=== PATIENT | female | born 1995 | race Caucasian/White ===

== ENCOUNTER 2017-06-01 09:10 | Emergency (ER) | payer OTHER ==
[~2017-06-01] VITALS: Ht 157.5 cm; Wt 63.6 kg
[2017-06-01 10:30] LABS: BASOPHIL % 0.5 % (0-2); PLATELET COUNT 231 x10^3mcL (130-400); RED CELL DISTRIBUTION WIDTH 14.2 % (11.5-14.5)
[2017-06-01 10:40] LABS: CALCIUM 8.9 mg/dL (8.5-10.1); CARBON DIOXIDE 26.4 mmol/L (21-32); CHLORIDE SERUM 104 mmol/L (98-107); CREATININE SERUM 0.5 mg/dL (0.6-1.0); GFR1 > 60 mL/min; GLUCOSE SERUM 85 mg/dL (74-106); POTASSIUM SERUM 3.9 mmol/L (3.5-5.1); SODIUM SERUM 141 mmol/L (136-145)
[2017-06-01 10:45] LABS: ALBUMIN 3.7 g/dL (3.4-5.0); ALKALINE PHOSPHATASE 84 U/L (46-116); ALT/SGPT 17 U/L (14-59); AST/SGOT 11 U/L (15-37); BILIRUBIN TOTAL 0.4 mg/dL (0.20-1.00); LIPASE 79 IU/L (73-393); TOTAL PROTEIN, SERUM 7.5 g/dL (6.4-8.2)
[2017-06-01 13:00] VITALS: BP 104/62
== END 2017-06-01 13:00 | disposition home or self-care (01) ==
LOC: ED 09:10
PROVIDERS: Emergency Medicine
DX: R19.7 Diarrhea, unspecified (principal); R10.11 Right upper quadrant pain
CPT/HCPCS: J2405; J3010; J7030; Q0092

== ENCOUNTER 2017-08-10 23:23 | Emergency (ER) | payer OTHER ==
[~2017-08-10] VITALS: Ht 157.5 cm; Wt 65.8 kg
[2017-08-10 23:31] VITALS: Ht 157.5 cm; Wt 65.8 kg
[2017-08-11 01:04] LABS: BASOPHIL % 0.3 % (0-2); PLATELET COUNT 258 x10^3mcL (130-400)
[2017-08-11 01:06] LABS: UA SPECIFIC GRAVITY 1.025 (1.005-1.035); microscopic required? YES; urine erythrocyte NEGATIVE (NEGATIVE)
[2017-08-11 01:11] LABS: RED CELL DISTRIBUTION WIDTH 14.7 % (11.5-14.5)
[2017-08-11 02:43] VITALS: BP 122/70
== END 2017-08-11 02:43 | disposition home or self-care (01) ==
LOC: ED 23:23
PROVIDERS: Emergency Medicine
DX: O23.41 Unspecified infection of urinary tract in pregnancy, first trimester (principal); N83.209 Unspecified ovarian cyst, unspecified side; Z3A.00 Weeks of gestation of pregnancy not specified
CPT/HCPCS: 36415

== ENCOUNTER 2017-08-12 23:24 | Emergency (ER) | payer OTHER ==
[~2017-08-12] VITALS: Ht 157.5 cm; Wt 65.9 kg
[2017-08-13 00:03] VITALS: Ht 157.5 cm; Wt 65.9 kg
[2017-08-13 03:54] VITALS: BP 110/70
== END 2017-08-13 03:54 | disposition home or self-care (01) ==
LOC: ED 23:24
DX: O26.891 Other specified pregnancy related conditions, first trimester (principal); R10.9 Unspecified abdominal pain; Z3A.01 Less than 8 weeks gestation of pregnancy

== ENCOUNTER 2017-08-20 23:19 | Emergency (ER) | payer OTHER ==
[~2017-08-20] VITALS: Ht 157.5 cm; Wt 66.2 kg
[2017-08-20 23:37] VITALS: Ht 157.5 cm; Wt 66.2 kg
[2017-08-21 00:59] VITALS: BP 129/70
== END 2017-08-21 00:59 | disposition home or self-care (01) ==
LOC: ED 23:19
DX: O98.311 Other infections with a predominantly sexual mode of transmission complicating pregnancy, first trimester (principal); A56.02 Chlamydial vulvovaginitis; Z3A.01 Less than 8 weeks gestation of pregnancy

== ENCOUNTER 2017-09-20 22:51 | Emergency (ER) | payer OTHER ==
[~2017-09-20] VITALS: Ht 157.5 cm; Wt 65.8 kg
[2017-09-20 23:08] VITALS: Ht 157.5 cm; Wt 65.8 kg
[2017-09-21 01:45] LABS: CALCIUM 8.2 mg/dL (8.5-10.1); CARBON DIOXIDE 23.1 mmol/L (21-32); CHLORIDE SERUM 102 mmol/L (98-107); CREATININE SERUM 0.5 mg/dL (0.6-1.0); GFR1 > 60 mL/min; GLUCOSE SERUM 83 mg/dL (74-106); POTASSIUM SERUM 3.4 mmol/L (3.5-5.1); SODIUM SERUM 137 mmol/L (136-145)
[2017-09-21 01:50] LABS: ALKALINE PHOSPHATASE 75 U/L (46-116); ALT/SGPT 12 U/L (14-59); AST/SGOT 14 U/L (15-37); TOTAL PROTEIN, SERUM 6.6 g/dL (6.4-8.2)
[2017-09-21 01:53] LABS: BASOPHIL % 0.2 % (0-2); PLATELET COUNT 168 x10^3mcL (130-400); RED CELL DISTRIBUTION WIDTH 14.3 % (11.5-14.5)
[2017-09-21 02:00] VITALS: BP 107/78
== END 2017-09-21 02:17 | disposition home or self-care (01) ==
LOC: ED 22:51
PROVIDERS: Emergency Medicine
DX: O26.891 Other specified pregnancy related conditions, first trimester (principal); G43.909 Migraine, unspecified, not intractable, without status migrainosus; R50.9 Fever, unspecified; R11.10 Vomiting, unspecified; Z3A.00 Weeks of gestation of pregnancy not specified
CPT/HCPCS: J1200; J2765; J7030

== ENCOUNTER 2017-09-21 19:55 | Emergency (ER) | payer OTHER ==
[~2017-09-21] VITALS: Ht 157.5 cm; Wt 65.3 kg
[2017-09-21 20:04] VITALS: Ht 157.5 cm; Wt 65.3 kg
[2017-09-21 21:17] VITALS: BP 124/79
== END 2017-09-21 21:17 | disposition home or self-care (01) ==
LOC: ED 19:55
DX: Z09 Encounter for follow-up examination after completed treatment for conditions other than malignant neoplasm (principal); Z34.01 Encounter for supervision of normal first pregnancy, first trimester

== ENCOUNTER 2017-09-22 19:40 | Emergency (ER) | payer MEDICAID ==
[~2017-09-22] VITALS: Ht 162.6 cm; Wt 64.4 kg
[2017-09-22 19:54] VITALS: Ht 162.6 cm; Wt 64.4 kg
[2017-09-22 23:34] VITALS: BP 102/69
== END 2017-09-22 23:35 | disposition home or self-care (01) ==
LOC: ED 19:40
DX: B34.9 Viral infection, unspecified (principal)

== ENCOUNTER 2017-10-01 23:46 | Emergency (ER) | payer MEDICAID ==
[~2017-10-01] VITALS: Ht 157.5 cm; Wt 65.5 kg
[2017-10-02 00:05] VITALS: Ht 157.5 cm; Wt 65.5 kg
[2017-10-02 01:10] LABS: BASOPHIL % 0.4 % (0-2); PLATELET COUNT 185 x10^3mcL (130-400); RED CELL DISTRIBUTION WIDTH 13.8 % (11.5-14.5)
[2017-10-02 01:14] LABS: UA SPECIFIC GRAVITY >=1.030 (1.005-1.035); microscopic required? YES; urine erythrocyte 3+ (NEGATIVE)
[2017-10-02 01:26] LABS: CALCIUM 8.7 mg/dL (8.5-10.1); CHLORIDE SERUM 111 mmol/L (98-107); CREATININE SERUM 0.5 mg/dL (0.6-1.0); GFR1 > 60 mL/min; GLUCOSE SERUM 89 mg/dL (74-106); SODIUM SERUM 141 mmol/L (136-145)
[2017-10-02 01:36] LABS: ALBUMIN 2.9 g/dL (3.4-5.0); ALKALINE PHOSPHATASE 69 U/L (46-116); ALT/SGPT 22 U/L (14-59); AST/SGOT 14 U/L (15-37); BILIRUBIN TOTAL 0.19 mg/dL (0.20-1.00); LIPASE 204 IU/L (73-393); TOTAL PROTEIN, SERUM 6.4 g/dL (6.4-8.2)
[2017-10-02 04:28] VITALS: BP 104/59
== END 2017-10-02 04:28 | disposition home or self-care (01) ==
LOC: ED 23:46
PROVIDERS: Emergency Medicine
DX: O03.89 Complete or unspecified spontaneous abortion with other complications (principal); R10.9 Unspecified abdominal pain; G43.909 Migraine, unspecified, not intractable, without status migrainosus
CPT/HCPCS: 36415; J1885; J2270; Q0162

== ENCOUNTER 2017-11-02 11:29 | Emergency (ER) | payer MEDICAID ==
[~2017-11-02] VITALS: Ht 157.5 cm; Wt 63.5 kg
[2017-11-02 12:09] LABS: microscopic required? YES; urine erythrocyte NEGATIVE (NEGATIVE)
[2017-11-02 12:15] VITALS: BP 110/62
== END 2017-11-02 12:15 | disposition home or self-care (01) ==
LOC: ED 11:29
PROVIDERS: Emergency Medicine
DX: N76.0 Acute vaginitis (principal); G43.909 Migraine, unspecified, not intractable, without status migrainosus
CPT/HCPCS: 87491; 87591

== ENCOUNTER 2017-11-09 20:06 | Inpatient (IN) | payer MEDICAID ==
[~2017-11-09] VITALS: Ht 157.5 cm; Wt 65.9 kg
[2017-11-09 20:21] VITALS: Ht 157.5 cm; Wt 65.9 kg
[2017-11-09 21:27] LABS: BASOPHIL % 0.2 % (0-2); PLATELET COUNT 238 x10^3mcL (130-400); RED CELL DISTRIBUTION WIDTH 14.1 % (11.5-14.5)
[2017-11-09 21:31] LABS: CALCIUM 8.4 mg/dL (8.5-10.1); CARBON DIOXIDE 24.2 mmol/L (21-32); CHLORIDE SERUM 106 mmol/L (98-107); CREATININE SERUM 0.6 mg/dL (0.6-1.0); GFR1 > 60 mL/min; GLUCOSE SERUM 102 mg/dL (74-106); POTASSIUM SERUM 3.9 mmol/L (3.5-5.1); SODIUM SERUM 142 mmol/L (136-145)
[2017-11-09 21:35] LABS: ALBUMIN 3.6 g/dL (3.4-5.0); ALKALINE PHOSPHATASE 97 U/L (46-116); ALT/SGPT 18 U/L (14-59); AST/SGOT 11 U/L (15-37); LIPASE 109 IU/L (73-393); TOTAL PROTEIN, SERUM 7.6 g/dL (6.4-8.2)
[2017-11-10 01:47] LABS: MAGNESIUM 1.8 mg/dL (1.8-2.4); PHOSPHOROUS 3.6 mg/dL (2.5-4.9)
[2017-11-10 02:18] VITALS: BP 97/60
[2017-11-10 05:36] VITALS: BP 107/57
[2017-11-10 05:51] LABS: UA SPECIFIC GRAVITY <=1.005 (1.005-1.035); microscopic required? YES; urine erythrocyte 3+ (NEGATIVE)
[2017-11-10 06:53] LABS: BASOPHIL % 0 % (0-2); PLATELET COUNT 208 x10^3mcL (130-400); RED CELL DISTRIBUTION WIDTH 13.8 % (11.5-14.5)
[2017-11-10 07:01] LABS: CALCIUM 8.2 mg/dL (8.5-10.1); CARBON DIOXIDE 23.8 mmol/L (21-32); CHLORIDE SERUM 103 mmol/L (98-107); CREATININE SERUM 0.5 mg/dL (0.6-1.0); GFR1 > 60 mL/min; GLUCOSE SERUM 120 mg/dL (74-106); POTASSIUM SERUM 3.5 mmol/L (3.5-5.1); SODIUM SERUM 137 mmol/L (136-145)
[2017-11-10 07:04] LABS: AMPHETAMINE QUAL UR NONE DETECTED (See below)
[2017-11-10 09:34] VITALS: BP 91/54
[2017-11-10 16:34] VITALS: BP 101/53
[2017-11-10 18:56] LABS: UA SPECIFIC GRAVITY 1.015 (1.005-1.035); microscopic required? YES; urine erythrocyte 3+ (NEGATIVE)
[2017-11-10 20:10] VITALS: BP 99/62
[2017-11-11 05:30] VITALS: BP 104/53
[2017-11-11 06:12] LABS: CALCIUM 8.5 mg/dL (8.5-10.1); CARBON DIOXIDE 27.4 mmol/L (21-32); CHLORIDE SERUM 110 mmol/L (98-107); CREATININE SERUM 0.5 mg/dL (0.6-1.0); GFR1 > 60 mL/min; GLUCOSE SERUM 100 mg/dL (74-106); MAGNESIUM 1.9 mg/dL (1.8-2.4); PHOSPHOROUS 3.3 mg/dL (2.5-4.9); POTASSIUM SERUM 3.8 mmol/L (3.5-5.1); SODIUM SERUM 145 mmol/L (136-145)
[2017-11-11 06:19] LABS: BASOPHIL % 0.2 % (0-2); PLATELET COUNT 222 x10^3mcL (130-400); RED CELL DISTRIBUTION WIDTH 13.7 % (11.5-14.5)
[2017-11-11 09:14] VITALS: BP 107/53
[2017-11-11 12:53] VITALS: BP 107/53
[2017-11-11] MEDS ORDERED: CEPHALEXIN500 MG PO (14:04)
== END 2017-11-11 14:58 | disposition home or self-care (01) | DRG 234 ==
LOC: ED 20:06 → MU 11-10 00:44
PROVIDERS: Emergency Medicine; Internal Medicine; Surgery
PROC: 0DTJ4ZZ Resection of Appendix, Percutaneous Endoscopic Approach (ICD-10-PCS; principal; 2017-11-10 10:30)
DX: K35.80 Unspecified acute appendicitis (principal); N17.0 Acute kidney failure with tubular necrosis; J98.11 Atelectasis; Z68.25 Body mass index [BMI] 25.0-25.9, adult; R19.7 Diarrhea, unspecified; F14.10 Cocaine abuse, uncomplicated; F10.10 Alcohol abuse, uncomplicated
CPT/HCPCS: 83880; 94150; J0330; J0690; J0696; J1170; J1885; J1956; J2270; J2405; J2550; J2704; J2710; J3010; J3490; J7030; J7120; Q0092; Q9967

== ENCOUNTER 2017-11-13 16:17 | Emergency (ER) | payer MEDICAID ==
[~2017-11-13] VITALS: Ht 157.5 cm; Wt 63.5 kg
[~2017-11-13 16:17] MED LIST: CEPHALEXIN500 MG PO
[2017-11-13 16:23] VITALS: Ht 157.5 cm; Wt 63.5 kg
[2017-11-13 17:06] LABS: BASOPHIL % 0.6 % (0-2); PLATELET COUNT 260 x10^3mcL (130-400); RED CELL DISTRIBUTION WIDTH 13.8 % (11.5-14.5)
[2017-11-13 17:08] LABS: CALCIUM 8.8 mg/dL (8.5-10.1); CARBON DIOXIDE 26.7 mmol/L (21-32); CHLORIDE SERUM 107 mmol/L (98-107); CREATININE SERUM 0.5 mg/dL (0.6-1.0); GFR1 > 60 mL/min; GLUCOSE SERUM 102 mg/dL (74-106); POTASSIUM SERUM 3.1 mmol/L (3.5-5.1); SODIUM SERUM 144 mmol/L (136-145)
[2017-11-13 17:16] LABS: ALBUMIN 3.4 g/dL (3.4-5.0); ALKALINE PHOSPHATASE 75 U/L (46-116); ALT/SGPT 15 U/L (14-59); AST/SGOT 8 U/L (15-37); BILIRUBIN TOTAL 0.34 mg/dL (0.20-1.00); TOTAL PROTEIN, SERUM 7.1 g/dL (6.4-8.2)
[2017-11-13 19:55] VITALS: BP 114/73
== END 2017-11-13 20:08 | disposition home or self-care (01) ==
LOC: ED 16:17
PROVIDERS: Emergency Medicine
DX: G89.18 Other acute postprocedural pain (principal); R07.89 Other chest pain; G43.909 Migraine, unspecified, not intractable, without status migrainosus; Z90.89 Acquired absence of other organs; Z98.890 Other specified postprocedural states
CPT/HCPCS: 85378; J1885; J2765; J7030; Q0092; Q9967

== ENCOUNTER 2017-12-09 03:12 | Emergency (ER) | payer MEDICAID ==
[2017-12-09 03:19] VITALS: Ht 157.5 cm
[2017-12-09 04:52] VITALS: BP 110/64
== END 2017-12-09 05:00 | disposition home or self-care (01) ==
LOC: ED 03:12
DX: R51 Headache (principal); R50.9 Fever, unspecified; G43.909 Migraine, unspecified, not intractable, without status migrainosus; Z90.89 Acquired absence of other organs

== ENCOUNTER 2018-01-22 19:29 | Emergency (ER) | payer MEDICAID ==
[~2018-01-22] VITALS: Ht 157.5 cm; Wt 66.7 kg
[2018-01-22 19:32] VITALS: Ht 157.5 cm; Wt 66.7 kg
[2018-01-22 20:17] VITALS: BP 126/72
== END 2018-01-22 20:17 | disposition home or self-care (01) ==
LOC: ED 19:29
DX: M46.1 Sacroiliitis, not elsewhere classified (principal); G43.909 Migraine, unspecified, not intractable, without status migrainosus; Z98.890 Other specified postprocedural states; Z90.89 Acquired absence of other organs
CPT/HCPCS: J1885

== ENCOUNTER 2018-01-22 21:25 | Emergency (ER) | payer MEDICAID ==
[~2018-01-22] VITALS: Ht 157.5 cm; Wt 66.7 kg
[2018-01-22 21:28] VITALS: Ht 157.5 cm; Wt 66.7 kg
[2018-01-22 23:35] VITALS: BP 123/73
== END 2018-01-22 23:35 | disposition home or self-care (01) ==
LOC: ED 21:25
DX: F41.9 Anxiety disorder, unspecified (principal); F31.9 Bipolar disorder, unspecified; F20.9 Schizophrenia, unspecified; G43.909 Migraine, unspecified, not intractable, without status migrainosus; Z98.890 Other specified postprocedural states

== ENCOUNTER 2018-01-24 17:28 | Emergency (ER) | payer MEDICAID ==
[~2018-01-24] VITALS: Ht 157.5 cm; Wt 64.4 kg
[2018-01-24 17:33] VITALS: Ht 157.5 cm; Wt 64.4 kg
[2018-01-24 19:22] VITALS: BP 93/51
[2018-01-24 19:25] LABS: microscopic required? NO
[2018-01-24 19:35] LABS: UA SPECIFIC GRAVITY 1.015 (1.005-1.035); urine erythrocyte NEGATIVE (NEGATIVE)
== END 2018-01-24 19:22 | disposition home or self-care (01) ==
LOC: ED 17:28
PROVIDERS: Emergency Medicine
DX: M54.40 Lumbago with sciatica, unspecified side (principal); G43.909 Migraine, unspecified, not intractable, without status migrainosus; Z90.89 Acquired absence of other organs; Z98.890 Other specified postprocedural states

== ENCOUNTER 2018-03-06 22:12 | Emergency (ER) | payer OTHER ==
[~2018-03-06] VITALS: Ht 157.5 cm; Wt 68.5 kg
[2018-03-06 22:20] VITALS: Ht 157.5 cm; Wt 68.5 kg
[2018-03-07 01:33] VITALS: BP 104/71
== END 2018-03-07 01:33 | disposition home or self-care (01) ==
LOC: ED 22:12
DX: S83.91XA Sprain of unspecified site of right knee, initial encounter (principal); Z90.89 Acquired absence of other organs; X50.1XXA Overexertion from prolonged static or awkward postures, initial encounter; Y93.41 Activity, dancing; Y92.89 Other specified places as the place of occurrence of the external cause; Y99.8 Other external cause status
CPT/HCPCS: J1885